=== PATIENT | male | born 1930 | race Caucasian/White ===

== ENCOUNTER 2017-06-12 09:29 | Inpatient (IN) ==
[2017-06-12] MEDS ORDERED: METOCLOPRAMIDE 10 MG/2 ML VIAL IV STA (09:48)
[2017-06-12] MEDS ORDERED: ONDANSETRON 4 MG/2 ML VIAL IV STA (09:48)
[2017-06-12] MEDS ORDERED: METOCLOPRAMIDE 10 MG/2 ML VIAL ONE (10:18)
[2017-06-12] MEDS ORDERED: ONDANSETRON 4 MG/2 ML VIAL ONE (10:18)
[2017-06-12 10:31] LABS: Basophils # 0.1 10*3/uL (0.0-0.2); Eosinophils # 0.1 10*3/uL (0.0-0.87); Eosinophils % 1.2 % (0.00-10.9); Hematocrit 36.6 VOL% (42.0-52.0); Hemoglobin 11.1 GM/DL (14.0-18.0); Immature Granulocytes % 0.4 %; Immature Granulocytes Absolute 0.02 #; Lymphocytes # 1.3 10*3/uL (1.4-4.0); Lymphocytes % 26.7 % (21.2-54.2); Mean Corpuscular HGB Conc 30.3 GM/DL (32-36); Mean Corpuscular Hemoglobin 34 PG (27-34); Mean Corpuscular Volume 112.3 FL (87-102); Mean Platelet Volume 11.2 FL (9.6-12.0); Monocytes # 0.4 10*3/uL (0.11-0.8); Monocytes % 8.4 % (1.7-12.7); Neutrophils # 3.1 10*3/uL (1.4-7.4); Neutrophils % 62.3 % (38.7-73.9); Red Blood Count 3.26 MC/CUMM (3.8-5.5); Red Cell Distribution Width 14.9 % (9.3-17.3)
[2017-06-12 10:32] LABS: Platelet Count 92 T/CUMM (130-400)
[2017-06-12 10:41] LABS: INR 2.7
[2017-06-12 10:42] LABS: PT Patient Result 27.6 SECS
[2017-06-12 10:50] LABS: Hypochromasia 1+; Macrocytosis 1+
[2017-06-12] MEDS ORDERED: SODIUM CHLORIDE 0.9% 1,000 ML IV STA (10:50)
[2017-06-12 10:51] LABS: Platelet Estimate Decreased
[2017-06-12 11:13] LABS: Alanine Aminotransferase 12 U/L (16-61); Albumin 2.7 G/DL (3.4-5.0); Alkaline Phosphatase 170 U/L (45-117); Aspartate Amino Transferase 16 U/L (0-37); Bilirubin,Total < 0.39 MG/DL (0.2-1.0); Blood Urea Nitrogen 72 MG/DL (7-18); Calcium 8.3 MG/DL (8.5-10.1); Glucose 120 MG/DL (74-106); Osmolality,Calculated 300.4 MOS/KG (273-304); Potassium 5.4 MMOL/L (3.5-5.1); Sodium 140 MMOL/L (136-145); Total Protein 7.2 G/DL (6.4-8.3)
[2017-06-12 11:14] LABS: Troponin I Only 0.126 NG/ML (0.00-0.045)
[2017-06-12 11:55] LABS: Sedimentation Rate-Westergren 60 MM/HR (0-20)
[2017-06-12 11:56] LABS: Apearance,Urine Slightly Hazy (Clear); Bilirubin,Urine Negative (Negative); Blood, Urine Negative (Negative); Glucose,Urine (UA) Negative (Negative); Hyaline Casts,Urine 19 /LPF (0-3); Ketones,Urine Negative (Negative); Mucus,Urine Occasional /LPF (Occasional); Nitrite,Urine Negative (Negative); Protein,Urine 30 MG/DL; RBC,Urine 2 /HPF (0-4); Squamous Epithelial Cell,Urine Occasional /HPF (0-10); Urine Color Yellow (Yellow); Urine Specific Gravity 1.011 (1.001-1.035); Urine Urobilinogen < 2.0 EU/DL (0.2-1.0); WBC,Urine 1 /HPF (0-6)
[2017-06-12 12:01] LABS: Barbiturates Screen,Urine Negative (Negative); Benzodiazepines Screen,Urine Negative (Negative); Cannabinoid Screen,Urine Negative (Negative); Opiate Screen,Urine Negative (Negative); Phencyclidine Screen,Urine Negative (Negative)
[2017-06-12] MEDS ORDERED: WARFARIN 2.5 MG TABLET PO SCH (13:30)
[2017-06-12] MEDS ORDERED: WARFARIN 5 MG TABLET ONE (15:06)
[2017-06-12] MEDS ORDERED: WARFARIN 5 MG TABLET PO SCH (15:30)
[2017-06-12] MEDS: FUROSEMIDE 40 MG/4 ML VIAL IV SCH (17:11)
[2017-06-12] MEDS: WARFARIN 2.5 MG TABLET PO SCH (17:11)
[2017-06-12] MEDS: FERROUS SULFATE 325 MG TABLET PO SCH (20:48)
[2017-06-12] MEDS: PHENYTOIN ER 100 MG CAPSULE PO SCH (20:48)
[2017-06-12] MEDS: MAGNESIUM CHLORIDE 64 MG TABLET PO SCH (20:48)
[2017-06-12] MEDS: MONTELUKAST 10 MG TABLET PO SCH (20:48)
[2017-06-13 05:59] LABS: Basophils % 0.6 % (0.0-0.8); Eosinophils # 0.1 10*3/uL (0.0-0.87); Eosinophils % 1.1 % (0.00-10.9); Hematocrit 36.8 VOL% (42.0-52.0); Immature Granulocytes % 0.6 %; Immature Granulocytes Absolute 0.04 #; Lymphocytes # 1.2 10*3/uL (1.4-4.0); Lymphocytes % 18.8 % (21.2-54.2); Mean Corpuscular HGB Conc 29.9 GM/DL (32-36); Mean Corpuscular Hemoglobin 34 PG (27-34); Mean Corpuscular Volume 114.3 FL (87-102); Mean Platelet Volume 11.1 FL (9.6-12.0); Monocytes # 0.4 10*3/uL (0.11-0.8); Monocytes % 7.1 % (1.7-12.7); Neutrophils # 4.4 10*3/uL (1.4-7.4); Neutrophils % 71.8 % (38.7-73.9); Platelet Count 101 T/CUMM (130-400); Red Blood Count 3.22 MC/CUMM (3.8-5.5); Red Cell Distribution Width 14.8 % (9.3-17.3); White Blood Count 6.2 T/CUMM (4-12)
[2017-06-13] MEDS: LEVOTHYROXINE 125 MCG TABLET PO SCH (06:03)
[2017-06-13 06:40] LABS: Calcium 8.1 MG/DL (8.5-10.1); Osmolality,Calculated 302.4 MOS/KG (273-304); Potassium 5.7 MMOL/L (3.5-5.1)
[2017-06-13 07:20] LABS: INR 2.7
[2017-06-13 07:21] LABS: PT Patient Result 27.4 SECS
[2017-06-13] MEDS: ALLOPURINOL 300 MG TABLET PO SCH (08:18)
[2017-06-13] MEDS: ASCORBIC ACID 500 MG TABLET PO SCH (08:18)
[2017-06-13] MEDS: metOLazone 2.5 MG TABLET PO SCH (08:18)
[2017-06-13] MEDS: CHOLECALCIFEROL 5,000 UNIT TABLET PO SCH (08:18)
[2017-06-13] MEDS: PHENYTOIN ER 100 MG CAPSULE PO SCH ×2 (08:18→20:18)
[2017-06-13] MEDS: MAGNESIUM CHLORIDE 64 MG TABLET PO SCH ×2 (08:18→20:18)
[2017-06-13] MEDS: FERROUS SULFATE 325 MG TABLET PO SCH ×2 (08:18→20:18)
[2017-06-13] MEDS: PANTOPRAZOLE 40 MG TABLET PO SCH (08:18)
[2017-06-13] MEDS: FUROSEMIDE 40 MG/4 ML VIAL IV SCH (08:32)
[2017-06-13 12:11] LABS: Eosinophils,Pleural Fluid 2 %; Lymphocytes,Pleural Fluid 28 %; Monocytes,Pleural Fluid 9 %; Neutrophils,Pleural Fluid 61 %; RBC,Pleural Fluid > 100000 T/CUMM
[2017-06-13] MEDS: WARFARIN 5 MG TABLET PO SCH (17:51)
[2017-06-13] MEDS: cefTRIAXone 1,000 MG in SYRINGE 1 EACH IV SCH (20:18)
[2017-06-13] MEDS: MONTELUKAST 10 MG TABLET PO SCH (20:18)
[2017-06-14] MEDS: ACETAMINOPHEN 325 MG TABLET PO PRN ×2 (03:10→22:12)
[2017-06-14] MEDS: LEVOTHYROXINE 125 MCG TABLET PO SCH (06:04)
[2017-06-14 06:35] LABS: Basophils % 0.5 % (0.0-0.8); Eosinophils # 0.1 10*3/uL (0.0-0.87); Eosinophils % 1.4 % (0.00-10.9); Hematocrit 32.7 VOL% (42.0-52.0); Hemoglobin 10.2 GM/DL (14.0-18.0); Immature Granulocytes % 0.2 %; Immature Granulocytes Absolute 0.01 #; Lymphocytes # 1.2 10*3/uL (1.4-4.0); Lymphocytes % 20.7 % (21.2-54.2); Mean Corpuscular HGB Conc 31.2 GM/DL (32-36); Mean Corpuscular Hemoglobin 35 PG (27-34); Mean Corpuscular Volume 110.8 FL (87-102); Mean Platelet Volume 11.6 FL (9.6-12.0); Monocytes # 0.5 10*3/uL (0.11-0.8); Monocytes % 8.6 % (1.7-12.7); Neutrophils # 3.9 10*3/uL (1.4-7.4); Neutrophils % 68.6 % (38.7-73.9); Platelet Count 90 T/CUMM (130-400); Red Blood Count 2.95 MC/CUMM (3.8-5.5); Red Cell Distribution Width 14.6 % (9.3-17.3); White Blood Count 5.7 T/CUMM (4-12)
[2017-06-14 06:46] LABS: INR 2.9
[2017-06-14 06:48] LABS: PT Patient Result 29.9 SECS
[2017-06-14 07:07] LABS: Calcium 7.7 MG/DL (8.5-10.1); Osmolality,Calculated 303.3 MOS/KG (273-304); Potassium 5.6 MMOL/L (3.5-5.1)
[2017-06-14] MEDS: FUROSEMIDE 40 MG/4 ML VIAL IV SCH (08:33)
[2017-06-14] MEDS ORDERED: CYANOCOBALAMIN 1000 MCG/1 ML VIAL IM SCH (09:00)
[2017-06-14] MEDS: PHENYTOIN ER 100 MG CAPSULE PO SCH ×2 (09:19→20:45)
[2017-06-14] MEDS: metOLazone 2.5 MG TABLET PO SCH (09:19)
[2017-06-14] MEDS: PANTOPRAZOLE 40 MG TABLET PO SCH (09:19)
[2017-06-14] MEDS: MAGNESIUM CHLORIDE 64 MG TABLET PO SCH ×2 (09:19→20:45)
[2017-06-14] MEDS: ALLOPURINOL 300 MG TABLET PO SCH (09:19)
[2017-06-14] MEDS: FERROUS SULFATE 325 MG TABLET PO SCH ×2 (09:20→20:45)
[2017-06-14] MEDS: ASCORBIC ACID 500 MG TABLET PO SCH (09:20)
[2017-06-14] MEDS: CHOLECALCIFEROL 5,000 UNIT TABLET PO SCH (09:20)
[2017-06-14 11:54] LABS: Hypochromasia 2+
[2017-06-14] MEDS: SODIUM CHLORIDE 0.9% 1,000 ML IV SCH (12:56)
[2017-06-14] MEDS: WARFARIN 5 MG TABLET PO SCH (18:45)
[2017-06-14] MEDS: cefTRIAXone 1,000 MG in SYRINGE 1 EACH IV SCH (20:40)
[2017-06-14] MEDS: MONTELUKAST 10 MG TABLET PO SCH (20:45)
[2017-06-15] MEDS: ACETAMINOPHEN 325 MG TABLET PO PRN ×3 (02:37→22:38)
[2017-06-15] MEDS: SODIUM CHLORIDE 0.9% 1,000 ML IV SCH (05:29)
[2017-06-15] MEDS: LEVOTHYROXINE 125 MCG TABLET PO SCH (06:07)
[2017-06-15 06:40] LABS: Basophils # 0.1 10*3/uL (0.0-0.2); Basophils % 1.2 % (0.0-0.8); Eosinophils # 0.2 10*3/uL (0.0-0.87); Eosinophils % 2.9 % (0.00-10.9); Hematocrit 35.2 VOL% (42.0-52.0); Hemoglobin 10.9 GM/DL (14.0-18.0); Immature Granulocytes % 0.2 %; Immature Granulocytes Absolute 0.01 #; Lymphocytes % 18.9 % (21.2-54.2); Mean Corpuscular Hemoglobin 35 PG (27-34); Mean Corpuscular Volume 111.4 FL (87-102); Monocytes # 0.4 10*3/uL (0.11-0.8); Monocytes % 8.1 % (1.7-12.7); NRBC # 0.02 10*3/uL; Neutrophils # 3.6 10*3/uL (1.4-7.4); Neutrophils % 68.7 % (38.7-73.9); Platelet Count 88 T/CUMM (130-400); Red Blood Count 3.16 MC/CUMM (3.8-5.5); Red Cell Distribution Width 14.7 % (9.3-17.3); White Blood Count 5.2 T/CUMM (4-12)
[2017-06-15 06:59] LABS: INR 3.2
[2017-06-15 07:00] LABS: PT Patient Result 32.1 SECS
[2017-06-15 07:17] LABS: Osmolality,Calculated 303.5 MOS/KG (273-304); Potassium 5.9 MMOL/L (3.5-5.1)
[2017-06-15 07:23] LABS: Band Neutrophils 3 % (0-10); Eosinophils 2 % (0-10); Lymphocytes 22 % (20-55); Segmented Neutrophils 68 % (50-85); Total Cells Counted 100
[2017-06-15 07:24] LABS: Anisocytosis Slight; Burr Cells Few; Macrocytosis 2+; Platelet Estimate Decreased
[2017-06-15 07:38] LABS: Apearance,Urine Slightly Hazy (Clear); Bacteria,Urine Occasional /HPF (Few); Bilirubin,Urine Negative (Negative); Blood, Urine Negative (Negative); Glucose,Urine (UA) Negative (Negative); Hyaline Casts,Urine 6 /LPF (0-3); Ketones,Urine Negative (Negative); Mucus,Urine Occasional /LPF (Occasional); Nitrite,Urine Negative (Negative); Protein,Urine 100 MG/DL; RBC,Urine 1 /HPF (0-4); Squamous Epithelial Cell,Urine Occasional /HPF (0-10); Urine Color Yellow (Yellow); Urine Specific Gravity 1.014 (1.001-1.035); Urine Urobilinogen < 2.0 EU/DL (0.2-1.0); WBC,Urine 2 /HPF (0-6)
[2017-06-15] MEDS: CHOLECALCIFEROL 5,000 UNIT TABLET PO SCH (09:21)
[2017-06-15] MEDS: FERROUS SULFATE 325 MG TABLET PO SCH ×3 (09:21→22:59)
[2017-06-15] MEDS: MAGNESIUM CHLORIDE 64 MG TABLET PO SCH ×3 (09:21→22:59)
[2017-06-15] MEDS: ALLOPURINOL 300 MG TABLET PO SCH (09:21)
[2017-06-15] MEDS: PHENYTOIN ER 100 MG CAPSULE PO SCH ×2 (09:22→22:38)
[2017-06-15] MEDS: ASCORBIC ACID 500 MG TABLET PO SCH (09:23)
[2017-06-15] MEDS: PANTOPRAZOLE 40 MG TABLET PO SCH (09:23)
[2017-06-15] MEDS: SODIUM BICARB INJ 50 MEQ in SODIUM CHLORIDE 0.45% 1,000 ML IV SCH ×2 (11:48→22:36)
[2017-06-15] MEDS: WARFARIN 2.5 MG TABLET PO SCH (18:01)
[2017-06-15] MEDS: cefTRIAXone 1,000 MG in SYRINGE 1 EACH IV SCH (22:36)
[2017-06-15] MEDS: MONTELUKAST 10 MG TABLET PO SCH (22:37)
[2017-06-16] MEDS: MONTELUKAST 10 MG TABLET PO SCH ×2 (06:00→21:07)
[2017-06-16 06:50] LABS: Basophils # 0.1 10*3/uL (0.0-0.2); Eosinophils # 0.1 10*3/uL (0.0-0.87); Eosinophils % 1.8 % (0.00-10.9); Hematocrit 34.7 VOL% (42.0-52.0); Immature Granulocytes % 0.4 %; Immature Granulocytes Absolute 0.02 #; Lymphocytes # 0.7 10*3/uL (1.4-4.0); Lymphocytes % 14.6 % (21.2-54.2); Mean Corpuscular HGB Conc 31.7 GM/DL (32-36); Mean Corpuscular Hemoglobin 34 PG (27-34); Mean Corpuscular Volume 108.1 FL (87-102); Mean Platelet Volume 11.9 FL (9.6-12.0); Monocytes # 0.3 10*3/uL (0.11-0.8); Monocytes % 6.9 % (1.7-12.7); Neutrophils # 3.7 10*3/uL (1.4-7.4); Neutrophils % 75.3 % (38.7-73.9); Platelet Count 89 T/CUMM (130-400); Red Blood Count 3.21 MC/CUMM (3.8-5.5); Red Cell Distribution Width 14.6 % (9.3-17.3); White Blood Count 4.9 T/CUMM (4-12)
[2017-06-16 06:53] LABS: INR 3.4
[2017-06-16 06:55] LABS: PT Patient Result 34.1 SECS
[2017-06-16 07:15] LABS: Eosinophils 2 % (0-10); Hypochromasia 1+; Lymphocytes 7 % (20-55); Macrocytosis Slight; Myelocytes 1 %; Platelet Estimate Decreased; Segmented Neutrophils 82 % (50-85); Total Cells Counted 100
[2017-06-16 07:19] LABS: Calcium 8.3 MG/DL (8.5-10.1)
[2017-06-16 07:29] LABS: Potassium 6.1 MMOL/L (3.5-5.1)
[2017-06-16] MEDS: LEVOTHYROXINE 125 MCG TABLET PO SCH (08:14)
[2017-06-16] MEDS: FERROUS SULFATE 325 MG TABLET PO SCH ×2 (09:43→21:07)
[2017-06-16] MEDS: PHENYTOIN ER 100 MG CAPSULE PO SCH ×2 (09:43→20:20)
[2017-06-16] MEDS: MAGNESIUM CHLORIDE 64 MG TABLET PO SCH ×2 (09:43→21:07)
[2017-06-16] MEDS: ASCORBIC ACID 500 MG TABLET PO SCH (09:43)
[2017-06-16] MEDS: ALLOPURINOL 300 MG TABLET PO SCH (09:43)
[2017-06-16] MEDS: CHOLECALCIFEROL 5,000 UNIT TABLET PO SCH (09:44)
[2017-06-16] MEDS: SODIUM BICARB INJ 50 MEQ in SODIUM CHLORIDE 0.45% 1,000 ML IV SCH ×2 (09:44→19:39)
[2017-06-16] MEDS: PANTOPRAZOLE 40 MG TABLET PO SCH (09:44)
[2017-06-16] MEDS: WARFARIN 5 MG TABLET PO SCH (19:34)
[2017-06-16] MEDS ORDERED: ACETAMINOPHEN 325 MG/10.15 ML UDCUP PO PRN (20:15)
[2017-06-16] MEDS: cefTRIAXone 1,000 MG in SYRINGE 1 EACH IV SCH (20:19)
[2017-06-16] MEDS ORDERED: HALOPERIDOL 5 MG/ML AMP IV ONE ×2 (20:36→20:37)
[2017-06-17 06:29] LABS: INR 3.8
[2017-06-17 06:31] LABS: PT Patient Result 38.3 SECS
[2017-06-17] MEDS: PHENYTOIN ER 100 MG CAPSULE PO SCH ×2 (08:11→22:57)
[2017-06-17] MEDS: FERROUS SULFATE 325 MG TABLET PO SCH ×2 (08:11→22:57)
[2017-06-17] MEDS: LEVOTHYROXINE 125 MCG TABLET PO SCH (08:11)
[2017-06-17] MEDS: ALLOPURINOL 300 MG TABLET PO SCH (08:12)
[2017-06-17] MEDS: MAGNESIUM CHLORIDE 64 MG TABLET PO SCH ×2 (08:12→22:57)
[2017-06-17] MEDS: CHOLECALCIFEROL 5,000 UNIT TABLET PO SCH (08:12)
[2017-06-17] MEDS: PANTOPRAZOLE 40 MG TABLET PO SCH (08:12)
[2017-06-17] MEDS: ASCORBIC ACID 500 MG TABLET PO SCH (08:12)
[2017-06-17] MEDS: SODIUM BICARB INJ 50 MEQ in SODIUM CHLORIDE 0.45% 1,000 ML IV SCH ×2 (09:16→17:47)
[2017-06-17 11:36] VITALS: BP 73/39
[2017-06-17] MEDS ORDERED: MORPHINE 2 MG/1 ML SYRINGE IV PRN ×2 (14:32→15:11)
[2017-06-17] MEDS ORDERED: MORPHINE 2 MG/1 ML SYRINGE SUBCUT PRN (15:07)
[2017-06-17] MEDS: WARFARIN 2.5 MG TABLET PO SCH (17:47)
[2017-06-17] MEDS: cefTRIAXone 1,000 MG in SYRINGE 1 EACH IV SCH (20:19)
[2017-06-17] MEDS: MONTELUKAST 10 MG TABLET PO SCH (22:57)
== END 2017-06-18 02:48 | disposition expired | DRG 291 ==
LOC: N.ED 09:29 → N.EDINP 12:09 → N.5E 16:43
PROVIDERS: ADMIT Internal Medicine; ATTEND Internal Medicine